=== PATIENT | female | born 1960 | race Caucasian/White ===

== ENCOUNTER 2019-10-27 20:14 | Emergency (ER) | payer OTHER ==
[~2019-10-27] VITALS: Ht 152.4 cm; Wt 59.7 kg
[2019-10-27] MEDS ORDERED: LEXA5TAB13 PO (20:25)
[2019-10-27] MEDS ORDERED: CLON0.5T2 PO (20:25)
[2019-10-27 20:59] LABS: BASO # 0.1 10^3/uL (0.0-0.2); BASO % 0.4 % (0.0-1.0); EOS # 0.2 10^3/uL (0.0-0.5); EOS % 1.2 % (0.0-3.0); HEMATOCRIT 45.2 % (36.0-47.0); LYMPH # 3.7 10^3/uL (1.5-5.0); LYMPH % 25.9 % (24.0-44.0); MEAN CORPUSCULAR HEMOGLOBIN 30.2 pg (27.0-33.0); MEAN CORPUSCULAR HGB CONC 33.2 g/dl (32.0-36.5); MEAN CORPUSCULAR VOLUME 91.1 fl (80.0-96.0); MONO # 0.8 10^3/uL (0.0-0.8); MONO % 5.4 % (0.0-5.0); NEUTROPHILS # 9.4 10^3/uL (1.5-8.5); NEUTROPHILS % 66.8 % (36.0-66.0); PLATELET COUNT, AUTOMATED 384 10^3/uL (150-450); RED BLOOD COUNT 4.96 10^6/uL (4.00-5.40); WHITE BLOOD COUNT 14.1 10^3/uL (4.0-10.0)
[2019-10-27] MEDS ORDERED: DICYCLOMINE 10 MG CAP PO ONE (21:15)
[2019-10-27 21:31] LABS: BILIRUBIN,DIRECT 0.1 MG/DL (0.0-0.2); BILIRUBIN,TOTAL 0.4 MG/DL (0.2-1.0); TOTAL PROTEIN 7.5 GM/DL (6.4-8.2)
[2019-10-27] MEDS ORDERED: ISOVUE-370 76% 100ML VIAL As Ordered ONE (22:21)
--- NOTE | 2019-10-27 22:46 | REPVR ---
PROCEDURE INFORMATION: Exam: CT Abdomen And Pelvis With Contrast Exam date and time: 10/27/2019 10:24 PM Age: 59 years old Clinical indication: Abdominal pain; Localized; Lower; Additional info: Lower abd pain, elev wbc TECHNIQUE: Imaging protocol: Computed tomography of the abdomen and pelvis with intravenous contrast. Radiation optimization: All CT scans at this facility use at least one of these dose optimization techniques: automated exposure control; mA and/or kV adjustment per patient size (includes targeted exams where dose is matched to clinical indication); or iterative reconstruction. Contrast material: ISOVUE 370; Contrast volume: 100 ml; Contrast route: IV; COMPARISON: CR Abdomen,Flat Upright,PA CHEST 10/27/2019 9:20 PM FINDINGS: Liver: The liver at mid clavicular line measures 15.1 cm. The liver attenuation is 95 Hounsfield units and the spleen is 154 Hounsfield units. Gallbladder and bile ducts: The gallbladder is somewhat contracted with no stones. Pancreas: Normal. No ductal dilation. Spleen: Normal. No splenomegaly. Adrenals: Normal. No mass. Kidneys and ureters: Normal. No hydronephrosis. Stomach and bowel: Colonic diverticulosis with short segment wall thickening of the mid sigmoid measuring 5 cm in length with slight surrounding induration consistent with mild diverticulitis. Appendix: A normal appendix is seen. Intraperitoneal space: Unremarkable. No free air. No significant fluid collection. Vasculature: Bilateral adnexal venous varicosities, left greater than right with prominent enlargement of the left gonadal vein measuring 11 mm and enlarged right gonadal vein measuring 10 mm. Narrowing of the left renal vein is noted between the SMA and aorta and collateralization may be a consideration. Lymph nodes: Unremarkable. No enlarged lymph nodes. Bladder: Unremarkable as visualized. Reproductive: Unremarkable as visualized. Bones/joints: Lower lumbar facet arthropathy with mild anterolisthesis of L4 relative to L5. Soft tissues: Minimal fat filled umbilical hernia. IMPRESSION: 1. Colonic diverticulosis with mild short segment diverticulitis of the mid sigmoid colon measuring approximately 5 cm in length. 2. Fatty infiltration of the liver. 3. Bilateral adnexal venous varicosities with enlarged bilateral gonadal veins measuring 11 mm on the left and 10 mm on the right. The finding is nonspecific and may be seen with pelvic congestion syndrome although there is a narrowed left renal vein and collateralization is not excluded. Electronically signed by: Al Bradshaw On 10/27/2019 22:45:36 PM
[2019-10-27] MEDS ORDERED: CIPROFLOXACIN 500MG TABLET PO ONE (23:00)
[2019-10-27] MEDS ORDERED: metroNIDAZOLE (FLAGYL) 500 MG TAB PO ONE (23:00)
[2019-10-27 23:08] VITALS: BP 133/65
[2019-10-27] MEDS ORDERED: CIPR-249 PO (23:15)
[2019-10-27] MEDS ORDERED: DICY10CA13 PO (23:15)
[2019-10-27] MEDS ORDERED: FLAG500T PO (23:15)
--- NOTE | 2019-10-28 07:19 | ED PDOC ---
Post-Departure Follow-Up ft haritha mcfarlane faed formal report of ct abd/p for fu Bekah Da Silva MD October 28, 2019 07:19
--- NOTE | 2019-10-28 07:53 | REP ---
Clinical: Cramping and abdominal pain. Technique: Upright view of the chest with supine and upright views of the abdomen and pelvis. Findings: Frontal upright view of the chest demonstrates no acute cardiopulmonary process or free air below the diaphragm to suspect pneumoperitoneum. Supine and upright views of the abdomen and pelvis demonstrate nonspecific bowel gas pattern without obstruction or perforation. No organomegaly. No abnormal calcifications. Skeletal structures normal for age. Impression: Nonspecific bowel gas pattern. Electronically Signed by Nico Izquierdo MD 10/28/2019 07:44 A
== END 2019-10-27 23:22 | disposition home or self-care (01) ==
LOC: M ED 20:14
DX: K57.32 Diverticulitis of large intestine without perforation or abscess without bleeding (principal); I86.2 Pelvic varices; Z79.899 Other long term (current) drug therapy; Z88.5 Allergy status to narcotic agent; F17.210 Nicotine dependence, cigarettes, uncomplicated
CPT/HCPCS: 36415; 74021; 74177; 80047; 80076; 81001; 83690; 85025; 99284; Q9967

== ENCOUNTER 2019-11-19 13:06 | Emergency (ER) | payer OTHER ==
[~2019-11-19] VITALS: Ht 165.1 cm; Wt 56.7 kg
[~2019-11-19 13:06] MED LIST: CIPR-249 PO; CLON0.5T2 PO; DICY10CA13 PO; FLAG500T PO; LEXA5TAB13 PO
[2019-11-19] MEDS ORDERED: CLON0.25 PO (13:23)
[2019-11-19] MEDS ORDERED: ONDANSETRON 4MG/2ML VIAL IV ONE (13:30)
[2019-11-19] MEDS ORDERED: PANTOPRAZOLE 40MG VIAL (C9113 PER 1) IV ONE (13:30)
[2019-11-19] MEDS ORDERED: NS 1,000 ML IV ONE (13:30)
[2019-11-19] MEDS ORDERED: CLON0.5T2 PO (13:32)
[2019-11-19 14:00] LABS: BASO # 0.1 10^3/uL (0.0-0.2); BASO % 0.6 % (0.0-1.0); EOS # 0.1 10^3/uL (0.0-0.5); EOS % 0.9 % (0.0-3.0); HEMATOCRIT 43.5 % (36.0-47.0); HEMOGLOBIN 14.7 g/dl (12.0-15.5); LYMPH % 28.5 % (24.0-44.0); MEAN CORPUSCULAR HEMOGLOBIN 30.9 pg (27.0-33.0); MEAN CORPUSCULAR HGB CONC 33.8 g/dl (32.0-36.5); MEAN CORPUSCULAR VOLUME 91.4 fl (80.0-96.0); MONO # 0.6 10^3/uL (0.0-0.8); NEUTROPHILS # 6.7 10^3/uL (1.5-8.5); NEUTROPHILS % 63.7 % (36.0-66.0); PLATELET COUNT, AUTOMATED 409 10^3/uL (150-450); RED BLOOD COUNT 4.76 10^6/uL (4.00-5.40); WHITE BLOOD COUNT 10.5 10^3/uL (4.0-10.0)
[2019-11-19 14:16] LABS: INR 0.91
[2019-11-19 14:30] LABS: ALT/SGPT 21 U/L (12-78); BILIRUBIN,DIRECT < 0.1 MG/DL (0.0-0.2); BILIRUBIN,TOTAL 0.4 MG/DL (0.2-1.0); BLOOD UREA NITROGEN 8 MG/DL (7-18); CALCIUM LEVEL 9.5 MG/DL (8.5-10.1); CARBON DIOXIDE LEVEL 29 MEQ/L (21-32); CHLORIDE LEVEL 100 MEQ/L (98-107); CREATININE FOR GFR 0.67 MG/DL (0.55-1.30); GLOMERULAR FILTRATION RATE > 60.0 (>51); GLUCOSE, FASTING 104 MG/DL (70-100); LIPASE 138 U/L (73-393); POTASSIUM SERUM 4.4 MEQ/L (3.5-5.1); SODIUM LEVEL 136 MEQ/L (136-145); TOTAL PROTEIN 7.7 GM/DL (6.4-8.2)
[2019-11-19 17:15] VITALS: BP 120/61
[2019-11-19] MEDS ORDERED: CIPR-249 PO (17:17)
[2019-11-19] MEDS ORDERED: ZOFR4TAB16 PO (17:17)
[2019-11-19] MEDS ORDERED: TRAM50TA2 PO (17:17)
[2019-11-19] MEDS ORDERED: FLAG500T PO (17:17)
--- NOTE | 2019-11-19 17:56 | REP ---
CT ABDOMEN/PELVIS WITHOUT CONTRAST: CT abdomen/pelvis performed without oral or IV contrast. Sagittal and coronal reconstruction images are performed. In the visualized lung bases, a calcified granuloma is seen in the right middle lobe. The liver, gallbladder, spleen, adrenals, pancreas, and kidneys are grossly unremarkable. No renal stones are seen, and there is no evidence of hydronephrosis. There is no abdominal aortic aneurysm. No definite adenopathy is seen. There is no free air. There is diffuse colonic diverticulosis. There is thickening of the hepatic flexure of the colon with adjacent pericolonic inflammation compatible with diverticulitis. The appendix is normal. No pelvic mass is seen. Urinary bladder is unremarkable. Metallic clips are seen in each adnexal region. IMPRESSION: Findings compatible with diverticulitis of the hepatic flexure of the colon. No free air or free fluid. No other acute finding. Electronically Signed by David Wright MD 11/19/2019 11:15 P
== END 2019-11-19 17:38 | disposition home or self-care (01) ==
LOC: M ED 13:06
DX: K57.32 Diverticulitis of large intestine without perforation or abscess without bleeding (principal); Z79.899 Other long term (current) drug therapy; Z88.5 Allergy status to narcotic agent
CPT/HCPCS: 74176; 80048; 80076; 81001; 83690; 85025; 85610; 96361; 96374; 96375; 99284; C9113; J2405

== ENCOUNTER 2019-11-30 07:32 | Emergency (ER) | payer OTHER ==
[~2019-11-30] VITALS: Ht 152.4 cm; Wt 56.0 kg
[~2019-11-30 07:32] MED LIST changes: +CLON0.25 PO; +TRAM50TA2 PO; +ZOFR4TAB16 PO
[2019-11-30] MEDS ORDERED: NS 1,000 ML IV ONE (08:15)
[2019-11-30 08:47] LABS: BASO % 0.3 % (0.0-1.0); EOS % 0.3 % (0.0-3.0); HEMATOCRIT 48.5 % (36.0-47.0); HEMOGLOBIN 16.2 g/dl (12.0-15.5); LYMPH # 2.1 10^3/uL (1.5-5.0); LYMPH % 18.9 % (24.0-44.0); MEAN CORPUSCULAR HEMOGLOBIN 30.7 pg (27.0-33.0); MEAN CORPUSCULAR HGB CONC 33.4 g/dl (32.0-36.5); MONO # 0.7 10^3/uL (0.0-0.8); NEUTROPHILS % 74.1 % (36.0-66.0); PLATELET COUNT, AUTOMATED 469 10^3/uL (150-450); RED BLOOD COUNT 5.27 10^6/uL (4.00-5.40); WHITE BLOOD COUNT 10.8 10^3/uL (4.0-10.0)
[2019-11-30 09:10] LABS: ALBUMIN 4.1 GM/DL (3.2-5.2); BILIRUBIN,DIRECT 0.2 MG/DL (0.0-0.2); BILIRUBIN,TOTAL 0.4 MG/DL (0.2-1.0); TOTAL PROTEIN 7.6 GM/DL (6.4-8.2)
[2019-11-30 09:23] LABS: CK-MB VALUE MASS < 1.0 NG/ML (<3.6); CPK CREATINE PHOSPHOKINASE 74 U/L (26-192); MB/CK RELATIVE INDEX 1.35 (< OR =4); TROPONIN I < 0.02 NG/ML (< 0.10)
[2019-11-30] MEDS ORDERED: ISOVUE-370 76% 100ML VIAL As Ordered ONE (09:38)
[2019-11-30] MEDS ORDERED: ONDANSETRON 4MG/2ML VIAL IV ONE (09:45)
[2019-11-30 10:52] VITALS: BP 122/71
--- NOTE | 2019-11-30 11:18 | REP ---
REASON FOR EXAM: History of diverticulitis. COMPARISON: 11/19/2019 a noncontrast enhanced examination, the latest prior and the latest contrast enhanced examination 10/27/2019. CONTRAST TODAY: 100 mL Isovue 370. There is no change in the lung bases. The liver, gallbladder, spleen, pancreas, adrenal glands and kidneys are again seen to be within normal limits. The abdominal aorta and para-aortic regions are again seen to be within normal limits. No free fluid or free air is seen in the abdomen or pelvis. Ascending colon diverticular change is consistent with diverticulitis have resolved. There is no intra-abdominal or intrapelvic adenopathy. There are suspected uterine myomatous changes status quo. There is no change in the osseous structures. IMPRESSION: Resolved ascending colon diverticulitis. Electronically Signed by Lake Orellana DO 11/30/2019 01:45 P
== END 2019-11-30 11:10 | disposition home or self-care (01) ==
LOC: M ED 07:32
DX: R10.31 Right lower quadrant pain (principal); R10.32 Left lower quadrant pain; K57.32 Diverticulitis of large intestine without perforation or abscess without bleeding; K21.9 Gastro-esophageal reflux disease without esophagitis; F32.9 Major depressive disorder, single episode, unspecified; F41.0 Panic disorder [episodic paroxysmal anxiety]; K64.9 Unspecified hemorrhoids; F17.200 Nicotine dependence, unspecified, uncomplicated
CPT/HCPCS: 74177; 80047; 80076; 81001; 82550; 82553; 83605; 83690; 84484; 85025; 96374; 99284; J2405; Q9967

== ENCOUNTER → 2020-01-03 | Day surgery (SDC) | payer OTHER ==
[~2020-01-03] VITALS: Ht 152.4 cm; Wt 53.1 kg
[~2020-01-03] MED LIST changes: +LIDOCAINE 2% 100MG/5ML SDV (FOR ANES.) As Ordered ONE; +NS 1,000 ML IV ONE; +propofoL 200 MG/20 ML VIAL As Ordered ONE
--- NOTE | 2020-01-03 10:09 | ROOR ---
Patient Name: Nikky Welch Procedure Date: 01/03/2020 9:45 AM Date of : 1960 Age: 59 Room: [facility] Gender: Female Note Status: Finalized Procedure: Colonoscopy Indications: Follow-up of diverticulitis Providers: Yoav Simpson Jr, MD Referring MD: Patel Sharma Md Requesting Provider: Medicines: Propofol per Anesthesia Complications: No immediate complications. Procedure: Pre-Anesthesia Assessment: - Prior to the procedure, a History and Physical was performed, and patient medications and allergies were reviewed. The patient is competent. The risks and benefits of the procedure and the sedation options and risks were discussed with the patient. All questions were answered and informed consent was obtained. Patient identification and proposed procedure were verified by the physician and the nurse in the pre-procedure area and in the procedure room. Mental Status Examination: alert and oriented. Airway Examination: normal oropharyngeal airway and neck mobility. Respiratory Examination: clear to auscultation. CV Examination: normal. ASA Grade Assessment: II - A patient with mild systemic disease. After reviewing the risks and benefits, the patient was deemed in satisfactory condition to undergo the procedure. The anesthesia plan was to use moderate sedation / analgesia (conscious sedation). Immediately prior to administration of medications, the patient was re-assessed for adequacy to receive sedatives. The heart rate, respiratory rate, oxygen saturations, blood pressure, adequacy of pulmonary ventilation, and response to care were monitored throughout the procedure. The physical status of the patient was re-assessed after the procedure. The Colonoscope was introduced through the anus and advanced to the cecum, identified by appendiceal orifice and ileocecal valve. The colonoscopy was performed without difficulty. The patient tolerated the procedure well. The quality of the bowel preparation was adequate. Findings: The rectum, recto-sigmoid colon, descending colon, transverse colon, ascending colon, cecum, appendiceal orifice and ileocecal valve appeared normal. Multiple small and large-mouthed diverticula were found in the sigmoid colon. A medium polyp was found in the sigmoid colon. The polyp was removed with a hot snare. Resection and retrieval were complete. Impression: - The rectum, recto-sigmoid colon, descending colon, transverse colon, ascending colon, cecum, appendiceal orifice and ileocecal valve are normal. - Diverticulosis in the sigmoid colon. - One medium polyp in the sigmoid colon, removed with a hot snare. Resected and retrieved. Recommendation: - Discharge patient to home (ambulatory). - Repeat colonoscopy in 5-10 years for surveillance based on pathology results. - Return to my office in 2 weeks. Yoav Simpson MD Yoav Simpson Jr, MD 01/03/2020 10:08:35 AM Electronically signed by Yoav Simpson Jr, MD Number of Addenda: 0 Note Initiated On: 01/03/2020 9:45 AM Estimated Blood Loss: Estimated blood loss: none.
[2020-01-03 10:40] VITALS: BP 115/74
== END | disposition home or self-care (01) ==
LOC: M OPP 08:29
PROVIDERS: ATTEND Surgery
DX: K57.92 Diverticulitis of intestine, part unspecified, without perforation or abscess without bleeding (principal); F41.9 Anxiety disorder, unspecified; F17.218 Nicotine dependence, cigarettes, with other nicotine-induced disorders; F32.9 Major depressive disorder, single episode, unspecified; Z79.899 Other long term (current) drug therapy

== ENCOUNTER → 2020-01-25 | Emergency (ER) | payer OTHER ==
[~2020-01-25] MED LIST changes: +ALIG4CAP; +ANUSOL HC 25MG SUPP ONE; +CVS1KIT XX; -LIDOCAINE 2% 100MG/5ML SDV (FOR ANES.) As Ordered ONE; +METF10004 PO; +METF500T13 PO; -NS 1,000 ML IV ONE; +NYST50SS SS; +ONDANSETRON 4 MG ORAL DISINTEGRATING TAB As Ordered ONE; +[UNRECOGNIZED DRUG - CODE] XX; -propofoL 200 MG/20 ML VIAL As Ordered ONE
[2020-03-10 13:13] LABS: BASO # 0.1 10^3/uL (0.0-0.2); BASO % 0.5 % (0.0-1.0); EOS # 0.2 10^3/uL (0.0-0.5); EOS % 2.3 % (0.0-3.0); HEMATOCRIT 46.1 % (36.0-47.0); HEMOGLOBIN 15.8 g/dl (12.0-15.5); LYMPH % 43.2 % (24.0-44.0); MEAN CORPUSCULAR HEMOGLOBIN 30.8 pg (27.0-33.0); MEAN CORPUSCULAR HGB CONC 34.3 g/dl (32.0-36.5); MEAN CORPUSCULAR VOLUME 89.9 fl (80.0-96.0); MONO # 0.7 10^3/uL (0.0-0.8); MONO % 7.2 % (0.0-5.0); NEUTROPHILS # 4.3 10^3/uL (1.5-8.5); NEUTROPHILS % 46.7 % (36.0-66.0); PLATELET COUNT, AUTOMATED 360 10^3/uL (150-450); RED BLOOD COUNT 5.13 10^6/uL (4.00-5.40); WHITE BLOOD COUNT 9.2 10^3/uL (4.0-10.0)
[2020-03-10 13:58] LABS: APPEARANCE, URINE MANUAL CLEAR (CLEAR); BILIRUBIN, URINE MANUAL NEGATIVE (NEGATIVE); BLOOD URINE MANUAL NEGATIVE (NEGATIVE); COLOR, URINE MANUAL COLORLESS (YELLOW); GLUCOSE, URINE (UA) MANUAL NEGATIVE (NEGATIVE); KETONE, URINE MANUAL NEGATIVE (NEGATIVE); LEUKOCYTE ESTERASE, URINE MAN NEGATIVE (NEGATIVE); NITRITE, URINE MANUAL NEGATIVE (NEGATIVE); PROTEIN, URINE MANUAL NEGATIVE (NEGATIVE); SPECIFIC GRAVITY,URINE MANUAL 1.005 (1.002-1.035); UROBILINOGEN, URINE MANUAL NORMAL (NORMAL)
== END | disposition home or self-care (01) ==
LOC: M ED 20:00
DX: K64.8 Other hemorrhoids (principal); K64.4 Residual hemorrhoidal skin tags; R11.0 Nausea; T36.8X5A Adverse effect of other systemic antibiotics, initial encounter; K57.32 Diverticulitis of large intestine without perforation or abscess without bleeding; F33.9 Major depressive disorder, recurrent, unspecified; F41.9 Anxiety disorder, unspecified; Z88.5 Allergy status to narcotic agent; Z79.899 Other long term (current) drug therapy
CPT/HCPCS: 80048; 80076; 81002; 85025; 99284; Q0162

== ENCOUNTER → 2020-02-15 | Outpatient (CLI) | payer OTHER ==
[~2020-02-15] MED LIST changes: -ANUSOL HC 25MG SUPP ONE; +GASTROGRAFIN SOLUTION 30ML (Q9963) As Ordered ONE; +ISOVUE-370 76% 100ML VIAL As Ordered ONE; -ONDANSETRON 4 MG ORAL DISINTEGRATING TAB As Ordered ONE
--- NOTE | 2020-03-11 11:58 | REP ---
CONTRAST ENHANCED CT OF THE ABDOMEN AND PELVIS CLINICAL: Abdominal pain with diverticulosis. TECHNIQUE: Axial contrast enhanced images from the lung bases to the pubic symphysis using oral (per protocol) and 100 cc Isovue-370 intravenous contrast material along with precontrast images of the abdomen and coronal and sagittal reformations. COMPARISON: 11/30/2019 FINDINGS: Lung bases are clear. Visualized heart and pericardium are normal. Liver, spleen, pancreas, gallbladder, bilateral adrenal glands, and kidneys are normal. The enteric system suggest moderate fecal stasis without obstruction or acute inflammatory process. Scattered sigmoid diverticula noted without acute diverticulitis. Pelvis demonstrates normal bladder and heterogenous myomatous uterus. No ascites. No free air. No adenopathy. Abdominal aorta is normal. Incidental duplicated left-sided IVC. IMPRESSION: * Fecal stasis. Sigmoid diverticula without acute diverticulitis. * Myomatous uterus. * Incidental duplicated left IVC. * No further acute abdominal or pelvic pathology appreciated. No ascites. No adenopathy. No focal inflammatory stranding. MTDD
== END ==
LOC: M RAD 11:58
PROVIDERS: ATTEND Surgery
DX: D25.9 Leiomyoma of uterus, unspecified (principal); K56.41 Fecal impaction; K57.90 Diverticulosis of intestine, part unspecified, without perforation or abscess without bleeding
CPT/HCPCS: 74178; Q9963; Q9967

== ENCOUNTER 2020-02-16 17:20 | Emergency (ER) | payer OTHER ==
[~2020-02-16] VITALS: Ht 162.6 cm; Wt 54.2 kg
[~2020-02-16 17:20] MED LIST changes: -ALIG4CAP; -CVS1KIT XX; -GASTROGRAFIN SOLUTION 30ML (Q9963) As Ordered ONE; -ISOVUE-370 76% 100ML VIAL As Ordered ONE; -METF10004 PO; -METF500T13 PO; -NYST50SS SS; -[UNRECOGNIZED DRUG - CODE] XX
[2020-02-16] MEDS ORDERED: ALIG4CAP (17:28)
[2020-02-16 17:47] LABS: BASO # 0.1 10^3/uL (0.0-0.2); BASO % 0.6 % (0.0-1.0); EOS # 0.2 10^3/uL (0.0-0.5); EOS % 1.6 % (0.0-3.0); HEMATOCRIT 47.6 % (36.0-47.0); HEMOGLOBIN 15.9 g/dl (12.0-15.5); LYMPH # 3.5 10^3/uL (1.5-5.0); LYMPH % 37.5 % (24.0-44.0); MEAN CORPUSCULAR HEMOGLOBIN 30.7 pg (27.0-33.0); MEAN CORPUSCULAR HGB CONC 33.4 g/dl (32.0-36.5); MEAN CORPUSCULAR VOLUME 91.9 fl (80.0-96.0); MONO # 0.6 10^3/uL (0.0-0.8); MONO % 6.3 % (0.0-5.0); NEUTROPHILS # 5.1 10^3/uL (1.5-8.5); NEUTROPHILS % 53.8 % (36.0-66.0); PLATELET COUNT, AUTOMATED 355 10^3/uL (150-450); RED BLOOD COUNT 5.18 10^6/uL (4.00-5.40); WHITE BLOOD COUNT 9.4 10^3/uL (4.0-10.0)
[2020-02-16 18:22] LABS: ALBUMIN 4.3 GM/DL (3.2-5.2); ALT/SGPT 22 U/L (12-78); BILIRUBIN,DIRECT < 0.1 MG/DL (0.0-0.2); BILIRUBIN,TOTAL 0.3 MG/DL (0.2-1.0); LIPASE 126 U/L (73-393); TOTAL PROTEIN 7.6 GM/DL (6.4-8.2)
[2020-02-16] MEDS ORDERED: NS 1,000 ML IV ONE (19:30)
--- NOTE | 2020-02-16 19:31 | REPVR ---
PROCEDURE INFORMATION: Exam: US Abdomen, Limited; Right Upper Quadrant Exam date and time: 02/16/2020 6:43 PM Age: 59 years old Clinical indication: Abdominal pain; Additional info: Ruq tenderness TECHNIQUE: Imaging protocol: US abdomen. Real time ultrasound with image documentation. Limited exam focused on the right upper quadrant. COMPARISON: CT ABD PELVIS W/O FOL BY WIT 02/15/2020 1:42 PM FINDINGS: Liver: Normal appearing liver with no evidence of intrahepatic biliary dilatation. Gallbladder: The gallbladder is partially contracted and there is no evidence of gallstones. Common bile duct: Common bile duct measures 6 mm. Right kidney: The right kidney measures 8.1 cm in length by 3.7 cm in thickness and there is no hydronephrosis. IMPRESSION: No evidence of gallstones. Electronically signed by: Len Tavarez On 02/16/2020 19:31:12 PM
--- NOTE | 2020-02-16 19:44 | REPVR ---
PROCEDURE INFORMATION: Exam: US Nonobstetric Pelvis; Complete Exam date and time: 02/16/2020 6:43 PM Age: 59 years old Clinical indication: Abdominal pain and pelvic pain; Lower abdomen; Additional info: Months of lower abd pain with bloating/diarrhea TECHNIQUE: Imaging protocol: Transabdominal pelvic nonobstetric ultrasound. Complete exam. Real time ultrasound with image documentation. COMPARISON: CT ABD PELVIS W/O FOL BY WIT 02/15/2020 1:42 PM FINDINGS: Uterus/cervix: The uterus measures 10 cm in length by 4 cm in AP dimension by 5 cm in transverse dimension. There is no evidence of endometrial thickening. There is a 4.6 cm structure fundus of the uterus probably a fibroid. Right adnexa: The right ovary measures 2.3 cm in length by 1 cm in thickness and there is vascular flow with no evidence of torsion. Left adnexa: The left ovary measures 1.7 cm in length by 1 cm in thickness. There is vascular flow the left ovary with no evidence of torsion. Intraperitoneal space: There is no evidence of free fluid in the pelvis. There are uterine varices at the right and left adnexa greater on the left. Bladder: The urinary bladder appears smooth. IMPRESSION: 4.6 cm fibroid of the fundus of the uterus. Varices along the margins of the uterus. Electronically signed by: Len Tavarez On 02/16/2020 19:44:13 PM
[2020-02-16] MEDS ORDERED: ISOVUE-370 76% 100ML VIAL As Ordered ONE (21:37)
--- NOTE | 2020-02-16 22:58 | REPVR ---
PROCEDURE INFORMATION: Exam: CT Abdomen And Pelvis With Contrast Exam date and time: 02/16/2020 9:40 PM Age: 59 years old Clinical indication: Abdominal pain; Localized; Lower; Additional info: Lower abd pain with diarrhea HX of diverticulitis TECHNIQUE: Imaging protocol: Computed tomography of the abdomen and pelvis with intravenous contrast. Radiation optimization: All CT scans at this facility use at least one of these dose optimization techniques: automated exposure control; mA and/or kV adjustment per patient size (includes targeted exams where dose is matched to clinical indication); or iterative reconstruction. Contrast material: ISOVUE 370; Contrast volume: 100 ml; Contrast route: INTRAVENOUS (IV); COMPARISON: CT ABD PELVIS W/O FOL BY WIT 02/15/2020 1:42 PM FINDINGS: Lungs: Clear lung bases. Liver: Mild fatty infiltration of the liver. Gallbladder and bile ducts: Normal common bile duct. Normal gallbladder. Pancreas: Normal pancreas. Spleen: Normal spleen. Adrenals: Normal adrenal glands. Kidneys and ureters: There is enhancement of both kidneys. There is no evidence of hydronephrosis right or left kidney. Stomach and bowel: There is some thickening of the bowel wall of the duodenal bulb and 1st portion of the duodenum which could be secondary to peptic disease. There is no evidence of bowel obstruction. There are multiple diverticula. There is mild thickening of the bowel wall which could be secondary to mild changes of colitis. There is no surrounding inflammation. There is no evidence of bowel obstruction. Appendix: Normal appendix. Intraperitoneal space: Unremarkable. No free air. No significant fluid collection. Vasculature: There is opacification of the aorta which appears intact. There is a very large uterine vein extending from the renal vein inferiorly and contiguous with the numerous varices within the left pelvis. Lymph nodes: Unremarkable. No enlarged lymph nodes. Bladder: There is a small amount of urine in the urinary bladder. Reproductive: There are large varices in the right left adnexa. The uterus is bulbous consistent with fibroid changes. Suspect 4.8 cm fibroid at the fundus of the uterus Bones/joints: There is posterior disc osteophyte complex lower lumbar spine with sclerosis and facet hypertrophy. Soft tissues: There is no evidence of soft tissue abnormality. IMPRESSION: 1. There is mild thickening of the bowel wall of the sigmoid colon which could be secondary to very mild changes of colitis. 2. There are large uterine veins especially on the left supplying large pelvic varices much greater on the left. 3. 4.6 cm fibroid of the fundus of the uterus. Electronically signed by: Len Tavarez On 02/16/2020 22:58:24 PM
[2020-02-16 23:27] VITALS: BP 115/70
[2020-02-16] MEDS ORDERED: NYST50SS SS (23:30)
--- NOTE | 2020-02-20 13:31 | ED PDOC ---
Post-Departure Follow-Up ft haritha mcfarlane faxed formal report of ct abd/p for fu Bekah Da Silva MD Feb 20, 2020 13:31
[2020-03-24] MEDS ORDERED: METF10004 PO (17:31)
[2020-03-24] MEDS ORDERED: CVS1KIT XX (17:32)
[2020-03-24] MEDS ORDERED: METF500T13 PO (17:32)
[2020-03-24] MEDS ORDERED: [UNRECOGNIZED DRUG - CODE] XX (17:34)
== END 2020-02-16 23:42 | disposition home or self-care (01) ==
LOC: M ED 17:20
DX: R10.9 Unspecified abdominal pain (principal); B37.9 Candidiasis, unspecified; D25.9 Leiomyoma of uterus, unspecified; K57.92 Diverticulitis of intestine, part unspecified, without perforation or abscess without bleeding; F41.9 Anxiety disorder, unspecified; F17.200 Nicotine dependence, unspecified, uncomplicated
CPT/HCPCS: 74177; 76705; 76856; 80047; 80076; 81001; 83690; 85025; 87507; 96360; 99284; Q9967

== ENCOUNTER → 2020-04-17 | Outpatient (CLI) | payer OTHER ==
[~2020-04-17] MED LIST changes: +ALIG4CAP; +CVS1KIT XX; +METF10004 PO; +METF500T13 PO; +NYST50SS SS; +[UNRECOGNIZED DRUG - CODE] XX
[2020-04-17 15:27] LABS: FREE T4 0.91 NG/DL (0.76-1.46); THYROID STIMULATING HORMONE 1.94 uIU/ML (0.358-3.740)
== END ==
LOC: M LAB 14:08
PROVIDERS: ATTEND Internal Medicine Gastroenterology
DX: K57.32 Diverticulitis of large intestine without perforation or abscess without bleeding (principal)

== ENCOUNTER → 2020-04-21 | Outpatient (REF) | payer OTHER | LOC: M LAB REF 09:05 | PROVIDERS: ATTEND Internal Medicine Gastroenterology | DX: K57.32 Diverticulitis of large intestine without perforation or abscess without bleeding (principal) ==

== ENCOUNTER 2020-05-26 12:36 | Day surgery (SDC) | payer OTHER ==
[~2020-05-26] VITALS: Ht 152.4 cm; Wt 51.7 kg
[~2020-05-26 12:36] MED LIST changes: +DICY10CA13; +NS 1,000 ML IV ONE
[2020-05-26] MEDS ORDERED: LIDOCAINE 2% 100MG/5ML SDV (FOR ANES.) As Ordered ONE (13:43)
[2020-05-26] MEDS ORDERED: propofoL 200 MG/20 ML VIAL As Ordered ONE (13:44)
[2020-05-26] MEDS ORDERED: fentaNYL 100 MCG/2 ML INJECTION (J3010) As Ordered ONE (13:44)
--- NOTE | 2020-05-26 14:21 | ROOR ---
Patient Name: Nikky Welch Procedure Date: 05/26/2020 1:51 PM Date of : 1960 Age: 59 Room: [facility] Gender: Female Note Status: Finalized Procedure: Upper GI endoscopy Indications: Functional Dyspepsia Providers: John VASQUEZ MD Referring MD: Natividad Gunter Do, GUTHRIE GUTHRIE, MD Requesting Provider: Medicines: Monitored Anesthesia Care Complications: No immediate complications. Procedure: Pre-Anesthesia Assessment: - The heart rate, respiratory rate, oxygen saturations, blood pressure, adequacy of pulmonary ventilation, and response to care were monitored throughout the procedure. The Endoscope was introduced through the mouth, and advanced to the second part of duodenum. The upper GI endoscopy was accomplished without difficulty. The patient tolerated the procedure well. Findings: The esophagus was normal. The stomach was normal. The examined duodenum was normal. Biopsies were taken with a cold forceps in the gastric antrum for Helicobacter pylori testing. Impression: - Normal esophagus. - Normal stomach. - Normal examined duodenum. - Biopsies were taken with a cold forceps for Helicobacter pylori testing. Recommendation: - Observe patient's clinical course. - Telephone endoscopist for pathology results in 2 weeks. Procedure Code(s): --- Professional --- 51078, Esophagogastroduodenoscopy, flexible, transoral; with biopsy, single or multiple Diagnosis Code(s): --- Professional --- K30, Functional dyspepsia CPT copyright 2019 [employer]. All rights reserved. The codes documented in this report are preliminary and upon director speech and hearing review may be revised to meet current compliance requirements. Jonh Vasquez MD John VASQUEZ MD 05/26/2020 2:20:57 PM Electronically signed by John VASQUEZ MD Number of Addenda: 0 Note Initiated On: 05/26/2020 1:51 PM Estimated Blood Loss: Estimated blood loss: none.
--- NOTE | 2020-05-26 14:28 | ROOR ---
Patient Name: Nikky Welch Procedure Date: 05/26/2020 1:52 PM Date of : 1960 Age: 59 Room: [facility] Gender: Female Note Status: Finalized Procedure: Colonoscopy Indications: Generalized abdominal pain, Clinically significant diarrhea of unexplained origin, Suspected irritable bowel syndrome, Irritable bowel syndrome with diarrhea Providers: John VASQUEZ MD Referring MD: Natividad Gunter Do, ESPERANZA MATA MD Requesting Provider: Medicines: Monitored Anesthesia Care Complications: No immediate complications. Procedure: Pre-Anesthesia Assessment: - The heart rate, respiratory rate, oxygen saturations, blood pressure, adequacy of pulmonary ventilation, and response to care were monitored throughout the procedure. The Colonoscope was introduced through the anus and advanced to 10 cm into the ileum. The colonoscopy was performed without difficulty. The patient tolerated the procedure well. The quality of the bowel preparation was good. Findings: The perianal and digital rectal examinations were normal. A 7 mm polyp was found in the hepatic flexure. The polyp was sessile. The polyp was removed with a cold snare. Resection and retrieval were complete. Multiple small and large-mouthed diverticula were found in the sigmoid colon and descending colon. Retroflexion in the right colon was performed. The exam was otherwise normal throughout the examined colon. The terminal ileum appeared normal. Biopsies for histology were taken with a cold forceps from the entire colon for evaluation of microscopic colitis. Impression: - One 7 mm polyp at the hepatic flexure, removed with a cold snare. Resected and retrieved. - Moderate diverticulosis in the sigmoid colon and in the descending colon. - Moderate internal hemorrhoids. - The colon is otherwise normal. - The examined portion of the ileum was normal. - Biopsies were taken with a cold forceps from the entire colon for evaluation of microscopic colitis. - (Irritable Bowel Syndrome/IBS suspected.) Recommendation: - Telephone endoscopist for pathology results in 2 weeks. - Use fiber, for example Citrucel, Fibercon, Konsyl or Metamucil. - Use Bentyl (dicyclomine) 10-20 mg PO Q 4-6 hrs PRN 30 min AC. Procedure Code(s): --- Professional --- 06851, Colonoscopy, flexible; with removal of tumor(s), polyp(s), or other lesion(s) by snare technique 57286, 59, Colonoscopy, flexible; with biopsy, single or multiple Diagnosis Code(s): --- Professional --- K57.30, Diverticulosis of large intestine without perforation or abscess without bleeding K58.0, Irritable bowel syndrome with diarrhea R19.7, Diarrhea, unspecified R10.84, Generalized abdominal pain K63.5, Polyp of colon CPT copyright 2019 [employer]. All rights reserved. The codes documented in this report are preliminary and upon steel plate printer review may be revised to meet current compliance requirements. John Vasquez MD John VASQUEZ MD 05/26/2020 2:27:45 PM Electronically signed by John VASQUEZ MD Number of Addenda: 0 Note Initiated On: 05/26/2020 1:52 PM Estimated Blood Loss: Estimated blood loss: none.
[2020-05-26 14:45] VITALS: BP 121/71
== END 2020-05-26 15:00 | disposition home or self-care (01) ==
LOC: M OPP 12:36
PROVIDERS: ATTEND Internal Medicine Gastroenterology
DX: K63.5 Polyp of colon (principal); K57.30 Diverticulosis of large intestine without perforation or abscess without bleeding; K64.8 Other hemorrhoids; F17.210 Nicotine dependence, cigarettes, uncomplicated; R10.84 Generalized abdominal pain; R19.7 Diarrhea, unspecified; K58.0 Irritable bowel syndrome with diarrhea; K30 Functional dyspepsia; Z79.899 Other long term (current) drug therapy; Z88.5 Allergy status to narcotic agent
CPT/HCPCS: 43239; 45380; 45385; 88305; J3010

== ENCOUNTER → 2020-12-08 | Outpatient (CLI) | payer OTHER ==
[~2020-12-08] MED LIST changes: -NS 1,000 ML IV ONE
[2020-12-08 17:18] LABS: THYROID STIMULATING HORMONE 2.43 uIU/ML (0.358-3.740)
[2020-12-08 17:19] LABS: TOTAL 25(OH) VITAMIN D 28.6 NG/ML (30.0-100.0)
== END ==
LOC: M WUC 15:44
PROVIDERS: ATTEND Internal Medicine Gastroenterology
DX: K57.32 Diverticulitis of large intestine without perforation or abscess without bleeding (principal); K58.0 Irritable bowel syndrome with diarrhea; R15.9 Full incontinence of feces

== ENCOUNTER 2021-01-20 07:17 | Emergency (ER) | payer OTHER ==
[~2021-01-20] VITALS: Ht 152.4 cm; Wt 55.5 kg
[2021-01-20] MEDS ORDERED: FLUC150T PO (07:27)
[2021-01-20] MEDS ORDERED: NS 1,000 ML IV ONE (08:15)
[2021-01-20] MEDS ORDERED: ISOVUE-370 76% 100ML VIAL As Ordered ONE (08:38)
[2021-01-20 08:50] LABS: BASO # 0.1 10^3/uL (0.0-0.2); BASO % 0.4 % (0.0-1.0); EOS # 0.1 10^3/uL (0.0-0.5); EOS % 0.4 % (0.0-3.0); HEMATOCRIT 47.8 % (36.0-47.0); HEMOGLOBIN 15.8 g/dl (12.0-15.5); LYMPH # 2.2 10^3/uL (1.5-5.0); MEAN CORPUSCULAR HEMOGLOBIN 30.4 pg (27.0-33.0); MEAN CORPUSCULAR HGB CONC 33.1 g/dl (32.0-36.5); MEAN CORPUSCULAR VOLUME 92.1 fl (80.0-96.0); MONO # 0.9 10^3/uL (0.0-0.8); MONO % 7.2 % (2.0-8.0); NEUTROPHILS % 73.7 % (36.0-66.0); PLATELET COUNT, AUTOMATED 378 10^3/uL (150-450); RED BLOOD COUNT 5.19 10^6/uL (4.00-5.40); WHITE BLOOD COUNT 12.2 10^3/uL (4.0-10.0)
[2021-01-20 09:15] LABS: ALBUMIN 3.9 GM/DL (3.2-5.2); ALT/SGPT 24 U/L (12-78); BILIRUBIN,DIRECT 0.2 MG/DL (0.0-0.2); BILIRUBIN,TOTAL 0.5 MG/DL (0.2-1.0); CK-MB VALUE MASS < 1.0 NG/ML (<3.6); CPK CREATINE PHOSPHOKINASE 79 U/L (26-192); LIPASE 124 U/L (73-393); MB/CK RELATIVE INDEX 1.27 (< OR =4); TOTAL PROTEIN 7.3 GM/DL (6.4-8.2); TROPONIN I < 0.02 NG/ML (< 0.10)
--- NOTE | 2021-01-20 09:16 | REP ---
INDICATION: LLQ pain, hx of diverticulitis, IBS. COMPARISON: Multiple the latest 02/16/2020 TECHNIQUE: Standard helical technique after the intravenous administration of 100 cc Isovue 370 FINDINGS: The lung bases are clear and unchanged. The liver, gallbladder, spleen, pancreas, adrenal glands, and kidneys are again seen to be within normal limits. There is no evidence of free fluid or free air. Seen in the sigmoid colon there is an area of irregular wall thickening and slight enhancement this is without ruiz pericolonic fatty infiltration. The bowel loops and the mesenteries are otherwise unchanged. The abdominal aorta and para-aortic regions are again seen to be within normal limits. Note is again made of uterine myomatous change and pelvic vascular congestion status quo. The osseous structures are stable and intact. IMPRESSION: 1. Irregular wall thickening in the sigmoid colon with evidence of slight enhancement. This could be secondary to chronic diverticular changes, however, I cannot rule out the possibility of neoplastic change. Further evaluation with colonoscopy is suggested. 2. Uterine myomatous changes and related findings as described above. This appears unchanged. <Electronically signed by Lake Orellana > 01/20/21 [id number]
[2021-01-20 10:15] VITALS: BP 121/70
[2021-01-20] MEDS ORDERED: AUGM875T28 PO (10:28)
--- NOTE | 2021-01-21 07:02 | ECGEPIP ---
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
--- NOTE | 2021-01-23 13:42 | ED PDOC ---
Post-Departure Follow-Up radiology report faxed to jaguar Gunter DO Delaney-Rowland, Sarah MD Jan 23, 2021 13:42
== END 2021-01-20 10:15 | disposition home or self-care (01) ==
LOC: M ED 07:17
DX: K57.92 Diverticulitis of intestine, part unspecified, without perforation or abscess without bleeding (principal); K58.9 Irritable bowel syndrome, unspecified; F17.200 Nicotine dependence, unspecified, uncomplicated; Z79.899 Other long term (current) drug therapy; Z88.5 Allergy status to narcotic agent; Z88.1 Allergy status to other antibiotic agents; Z87.19 Personal history of other diseases of the digestive system; Z98.890 Other specified postprocedural states
CPT/HCPCS: 74177; 80047; 80076; 81001; 82550; 82553; 83690; 84484; 85025; 93005; 96360; 96361; 99284; Q9967

== ENCOUNTER 2021-02-07 10:13 | Emergency (ER) | payer OTHER ==
[~2021-02-07] VITALS: Ht 152.4 cm; Wt 56.0 kg
[~2021-02-07 10:13] MED LIST changes: +AUGM875T28 PO; +FLUC150T PO
[2021-02-07] MEDS ORDERED: ERGO500029 (10:42)
[2021-02-07] MEDS ORDERED: MULT1TAB8 PO (10:42)
[2021-02-07 11:59] LABS: BASO # 0.1 10^3/uL (0.0-0.2); BASO % 0.6 % (0.0-1.0); EOS # 0.1 10^3/uL (0.0-0.5); EOS % 0.7 % (0.0-3.0); HEMATOCRIT 47.3 % (36.0-47.0); HEMOGLOBIN 15.8 g/dl (12.0-15.5); LYMPH # 2.8 10^3/uL (1.5-5.0); MEAN CORPUSCULAR HEMOGLOBIN 30.6 pg (27.0-33.0); MEAN CORPUSCULAR HGB CONC 33.4 g/dl (32.0-36.5); MEAN CORPUSCULAR VOLUME 91.7 fl (80.0-96.0); MONO # 0.6 10^3/uL (0.0-0.8); MONO % 6.3 % (2.0-8.0); NEUTROPHILS # 5.5 10^3/uL (1.5-8.5); NEUTROPHILS % 61.2 % (36.0-66.0); PLATELET COUNT, AUTOMATED 395 10^3/uL (150-450); RED BLOOD COUNT 5.16 10^6/uL (4.00-5.40)
[2021-02-07 12:09] LABS: INR 0.97; PROTHROMBIN TIME 13.3 SECONDS (12.7-14.5)
[2021-02-07 12:32] LABS: ALBUMIN 4.2 GM/DL (3.2-5.2); ALT/SGPT 27 U/L (12-78); BILIRUBIN,DIRECT 0.1 MG/DL (0.0-0.2); BILIRUBIN,TOTAL 0.4 MG/DL (0.2-1.0); CK-MB VALUE MASS < 1.0 NG/ML (<3.6); CPK CREATINE PHOSPHOKINASE 86 U/L (26-192); LIPASE 148 U/L (73-393); MB/CK RELATIVE INDEX 1.16 (< OR =4); TOTAL PROTEIN 7.6 GM/DL (6.4-8.2); TROPONIN I < 0.02 NG/ML (< 0.10)
[2021-02-07] MEDS ORDERED: NS 1,000 ML IV ONE ×2 (12:45)
[2021-02-07 13:18] LABS: HEMOGLOBIN A1c 5.6 %
--- NOTE | 2021-02-07 13:39 | REP ---
INDICATION: left CVA tenderness and frequency COMPARISON: 01/20/2021 TECHNIQUE: Axial noncontrast images from the lung bases to the pubic symphysis with coronal and sagittal reformations. This CT examination was performed using the following dose reduction techniques: Automated exposure control, adjustment of mA and/or kv according to the patient's size, and use of iterative reconstruction technique. FINDINGS: Lung bases are clear. Visualized heart and pericardium normal. Liver, spleen, pancreas, gallbladder, bilateral adrenal glands and kidneys are normal/stable. No hydronephrosis, perinephric stranding, intrarenal or obstructing ureteral calculi. Evaluation of the enteric system is limited by the lack of contrast and paucity of intraperitoneal fat. No evidence for bowel obstruction or perforation and no obvious acute process. Colonic diverticulosis noted. Previously suspected infectious/inflammatory process involving the sigmoid colon appears to have resolved. Pelvis demonstrates normal bladder and enlarged retroverted myomatous uterus. No ascites. No free air. No adenopathy. No focal inflammatory stranding. Abdominal aorta without aneurysm. Musculoskeletal structures are intact and without acute osseous abnormality. IMPRESSION: 1. No acute abdominopelvic pathology appreciated. 2. Colonic diverticulosis without evidence for acute diverticulitis. Previously suspected infectious/inflammatory process to the sigmoid colon appears to have resolved. <Electronically signed by Nico Izquierdo > 02/07/21 [id number]
[2021-02-07] MEDS ORDERED: NYSTATIN 500,000 U/5 ML SUSP UDC PO SCH (15:05)
[2021-02-07] MEDS ORDERED: NYSTATIN 500,000 U/5 ML SUSP UDC SS ONE (15:30)
[2021-02-07] MEDS ORDERED: NYST50SS PO (16:14)
[2021-02-07 16:30] VITALS: BP 128/72
--- NOTE | 2021-02-07 20:30 | ECGEPIP ---
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
== END 2021-02-07 17:03 | disposition home or self-care (01) ==
LOC: M ED 10:13
DX: E86.0 Dehydration (principal); K58.9 Irritable bowel syndrome, unspecified; B37.0 Candidal stomatitis; R00.1 Bradycardia, unspecified; K57.30 Diverticulosis of large intestine without perforation or abscess without bleeding; F17.200 Nicotine dependence, unspecified, uncomplicated; Z79.899 Other long term (current) drug therapy; Z88.1 Allergy status to other antibiotic agents; Z88.5 Allergy status to narcotic agent

== ENCOUNTER → 2022-03-04 | Outpatient (REF) | payer OTHER ==
[~2022-03-04] MED LIST changes: +ERGO500029; -FLUC150T PO; +FLUC150T9 PO; +MULT1TAB8 PO; +NYST50SS PO
[2022-03-04 17:14] LABS: RSV AMPLIFICATION NEGATIVE (NEGATIVE)
== END ==
LOC: M WUC 16:09
PROVIDERS: ATTEND Physician Assistant
DX: R50.9 Fever, unspecified (principal)

== ENCOUNTER → 2022-03-12 | Outpatient (CLI) | payer OTHER | LOC: M SOG 08:19 | PROVIDERS: ATTEND Orthopaedic Surgery Adult Reconstructive Orthopaedic Surgery | DX: M25.561 Pain in right knee (principal); M25.761 Osteophyte, right knee ==

== ENCOUNTER 2024-06-14 16:46 | Emergency (ER) | payer OTHER ==
[~2024-06-14] VITALS: Ht 152.4 cm; Wt 50.6 kg
[~2024-06-14 16:46] MED LIST changes: -ALIG4CAP; +ALIG4CAP3; +DICY-61; +DICY-61 PO; -DICY10CA13; -DICY10CA13 PO; +NYST-38 PO; +NYST-38 SS; -NYST50SS PO; -NYST50SS SS
[2024-06-14 18:55] LABS: BASO % 0.5 % (0.0-1.0); EOS # 0.1 10^3/uL (0.0-0.5); EOS % 0.8 % (0.0-3.0); HEMATOCRIT 46.3 % (36.0-47.0); HEMOGLOBIN 15.8 g/dl (12.0-15.5); LYMPH # 1.9 10^3/uL (1.5-5.0); LYMPH % 26.2 % (24.0-44.0); MEAN CORPUSCULAR HEMOGLOBIN 31.7 pg (27.0-33.0); MEAN CORPUSCULAR HGB CONC 34.1 g/dl (32.0-36.5); MONO # 0.8 10^3/uL (0.0-0.8); MONO % 10.9 % (2.0-8.0); NEUTROPHILS # 4.5 10^3/uL (1.5-8.5); NEUTROPHILS % 61.5 % (36.0-66.0); PLATELET COUNT, AUTOMATED 253 10^3/uL (150-450); RED BLOOD COUNT 4.98 10^6/uL (4.00-5.40); WHITE BLOOD COUNT 7.3 10^3/uL (4.0-10.0)
[2024-06-14 18:57] LABS: KETONE, URINE AUTO RFX NEGATIVE (NEGATIVE); LEUKOCYTE ESTERASE UR AUTO RFX NEGATIVE (NEGATIVE); NITRITE, URINE AUTO RFX NEGATIVE (NEGATIVE)
[2024-06-14 19:23] LABS: LIPASE 51 U/L (12-53)
[2024-06-14 19:25] LABS: ALBUMIN 3.9 G/DL (3.2-5.2); ALKALINE PHOSPHATASE 99 U/L (35-104); ALT/SGPT 25 U/L (7.0-40); AMYLASE 85 U/L (30-118); AST/SGOT 24 U/L (<34); BILIRUBIN,DIRECT < 0.1 MG/DL (<0.4); BILIRUBIN,TOTAL 0.2 MG/DL (0.3-1.2); BLOOD UREA NITROGEN 15 MG/DL (9-23); CALCIUM LEVEL 9.3 MG/DL (8.3-10.6); CARBON DIOXIDE LEVEL 29 MMOL/L (20-31); CHLORIDE LEVEL 102 MMOL/L (98-107); GLOMERULAR FILTRATION RATE > 60.0 (>45); GLUCOSE, FASTING 102 MG/DL (74-106); POTASSIUM SERUM 4.6 MMOL/L (3.5-5.1); SODIUM LEVEL 138 MMOL/L (136-145); TOTAL PROTEIN 7.3 G/DL (5.7-8.2)
[2024-06-15] MEDS ORDERED: ISOVUE-370 76% 100ML VIAL As Ordered ONE (01:22)
[2024-06-15] MEDS: ACETAMINOPHEN 325 MG TAB PO ONE (02:16)
[2024-06-15] MEDS: OSELTAMIVIR PHOSPHATE 75 MG CAP (TAMIFLU) PO ONE (02:16)
[2024-06-15] MEDS: NS (Normal Saline) 0.9% 1,000 ML IV ONE (03:19)
[2024-06-15] MEDS ORDERED: OSEL75CA PO (03:42)
[2024-06-15 04:01] VITALS: BP 122/68; TEMP 97.4; O2SAT 95
== END 2024-06-15 04:29 | disposition home or self-care (01) ==
LOC: M ED 16:46
DX: E86.0 Dehydration (principal); J09.X2 Influenza due to identified novel influenza A virus with other respiratory manifestations; K20.90 Esophagitis, unspecified without bleeding; K58.9 Irritable bowel syndrome, unspecified; E55.9 Vitamin D deficiency, unspecified; Z79.899 Other long term (current) drug therapy; Z88.1 Allergy status to other antibiotic agents; Z88.5 Allergy status to narcotic agent; Z88.8 Allergy status to other drugs, medicaments and biological substances; Z91.011 Allergy to milk products; Z91.018 Allergy to other foods
CPT/HCPCS: 74177; 80048; 80076; 81001; 82150; 83605; 83690; 85025; 86140; 87486; 87581; 87633; 87798; 96360; 99284; Q9967

== ENCOUNTER → 2024-10-22 | Outpatient (CLI) | payer OTHER ==
[~2024-10-22] MED LIST changes: +BLOO-308 XX; -CVS1KIT XX; +OSEL75CA PO
== END ==
LOC: M CARPUL 09:41
PROVIDERS: ATTEND Internal Medicine
DX: Z72.0 Tobacco use (principal)